=== PATIENT | female | born 1960 | race Caucasian/White ===

== ENCOUNTER 2016-07-26 01:42 | Emergency (ER) ==
[2016-07-26] MEDS ORDERED: NS 1,000 ML IV ONE (01:58)
--- NOTE | 2016-07-26 02:02 | PROVIDER DOCUMENTATION ---
HPI-Syncope/Dizziness - General Source: patient - Dizziness Severity in ED: reports: mild Dizziness Related Current/Associated Symptoms: reports: dizzy, off balance Any recent trauma/injury?: reports: none Modifying Factors: improves with: nothing Patient usually:: reports: walks without assistance <Veronique Cobos - Last Filed: 07/26/16 01:58> <Sid Estes [place]aphne[place] - Last Filed: 07/26/16 03:34> - General Chief Complaint: Dizziness Stated Complaint: SYNCOPE Time Seen by Provider: 07/26/16 01:44 Allergies/Adverse Reactions: Patient Allergies Allergy/AdvReac Type Severity Reaction Status Date / Time No Known Allergies Allergy Verified 07/26/16 02:14 Home Medications: Citalopram Hydrobromide [Citalopram HBr] 40 mg PO QHS 03/22/13 Levothyroxine [Synthroid] 75 microgm PO 1800 03/22/13 Carbamazepine [Tegretol] 200 mg PO Q4H 05/10/13 Gabapentin 800 mg PO TID 08/04/15 LISINOpril [Prinivil] 1 tab PO DAILY 08/04/15 Simvastatin 1 tab PO QHS 08/04/15 Cyanocobalamin (Vitamin B-12) [B-12] 1,000 mcg PO DAILY 07/26/16 Omeprazole [Prilosec] 20 mg PO QAM 07/26/16 - History of Present Illness-Syncope/Dizzy Nature of Presenting Problem: 56 year old F presents to the ED with a cc of weakness, dizziness, and falling x4 with an onset of this morning. PT denies syncopal episodes. (Veronique Cobos) Review of Systems - Adult - REVIEW OF SYSTEMS - ADULT Constitutional: denies: chills, fever Eyes: reports: no symptoms reported Ears, Nose, Mouth & Throat: reports: no symptoms reported Cardiovascular: denies: chest pain, palpitations Respiratory: denies: cough, shortness of breath Gastrointestinal: denies: abdominal pain, nausea, vomiting Genitourinary: denies: dysuria, incontinence Musculoskeletal: denies: bone pain, muscle aches, muscle weakness Integumentary: reports: no symptoms reported Neurological: reports: dizziness/vertigo. denies: headache/migraines, slurred speech, syncope Psychiatric: reports: no symptoms reported Endocrine: reports: no symptoms reported Hematologic/Lymphatic: reports: no symptoms reported Allergic/Immunologic: reports: no symptoms reported All Other Systems: Reviewed and Negative <PapitoVeronique - Last Filed: 07/26/16 01:58> Past History - Adult - PAST MEDICAL HISTORY-ADULT Review of Records: reports: Nursing Assessment Review, Medications Reviewed Major Childhood Illnesses: reports: denies history Cardiovascular: reports: HTN, hyperlipidemia Neurological: reports: Seizures/Epilepsy Psychiatric: reports: depression Endocrine/Immune: reports: thyroid disorder - PRIOR SURGERIES/PROCEDURES Surgical/Procedure History: reports: cholecystectomy, hysterectomy, other (ORIF left hip) - IMMUNIZATION STATUS Childhood Immunizations: See Nurse Assessment Flu Vaccine: See Nurse Assessment - SOCIAL HISTORY Smoking: non-smoker Substance Use: none/never Alcohol Use Frequency: never <Veronique Cobos - Last Filed: 07/26/16 01:58> Physical Exam-General - PHYSICAL EXAM-ADULT Initial Vital Signs Reviewed: Yes - CONSTITUTIONAL General Appearance: appears well, alert, no apparent distress - RESPIRATORY Respiratory: chest non-tender, lungs clear, normal breath sounds - CARDIOVASCULAR Cardiovascular: normal peripheral pulses, regular rate, rhythm, no edema - GASTROINTESTINAL (ABDOMEN) Abdominal Exam: normal bowel sounds, non tender, soft - MUSCULOSKELETAL Back Exam: no CVA tenderness Extremity: normal inspection, no pedal edema - SKIN Integumentary: normal color, normal turgor, warm/dry - PSYCHIATRIC Psych/Mental Status: normal mood/affect, normal thought content, normal thought process, oriented x 3 <PapitoVeronique - Last Filed: 07/26/16 01:58> Progress - EKG 1 Time of EKG reading by physician:: 01:49 EKG Read and Signed by:: Sid Estes EKG Interpretation (*Must complete 3 of following elements*): Abnormal Rate: 69 Rhythm: NSR QRS: LVH <Veronique Cobos - Last Filed: 07/26/16 01:58> - REASSESSMENT Reassessment #1 Time Reassessed: 03:33 (pt felt better, orthostatic VS now normal) Status: improving <Sid Estes - Last Filed: 07/26/16 03:34> - PLAN OF CARE/RESULTS Progress/Plan/Lab Results: Laboratory Tests 07/26/16 07/26/1617 01:57 01:57 01:57 WBC RBC Hgb Hct MCV MCH MCHC RDW Std Deviation Plt Count MPV Immature Gran % (Auto) Neut % (Auto) Lymph % (Auto) [place] % (Auto) Eos % (Auto) Baso % (Auto) Immature Gran # (Auto) Neut # (Auto) Lymph # (Auto) [place] # (Auto) Eos # (Auto) Baso # (Auto) Sodium 133 L Potassium 4.3 Chloride 98 Carbon Dioxide 23 L Anion Gap 12 BUN 18 Creatinine 1.1 H Estimated GFR/1.73 m2 51 BUN/Creatinine Ratio 16 Glucose 102 POC Glucose Calculated Osmolality 268 Calcium 7.7 L Magnesium 2.3 Total Bilirubin 0.17 L AST 14 ALT 9 L Alkaline Phosphatase 114 H Troponin T < 0.010 Total Protein 5.9 L Albumin 3.7 Globulin 2.2 Albumin/Globulin Ratio 1.7 TSH 5.70 H 07/26/16 07/26/16 01:57 01:58 WBC 4.97 RBC 3.71 L Hgb 9.7 L Hct 30.9 L MCV 83.3 MCH 26.1 L MCHC 31.4 L RDW Std Deviation 14.9 H Plt Count 324 MPV 9.7 Immature Gran % (Auto) 0.0 Neut % (Auto) 55.9 Lymph % (Auto) 25.2 [place] % (Auto) 11.3 H Eos % (Auto) 7.4 Baso % (Auto) 0.2 Immature Gran # (Auto) 0.00 Neut # (Auto) 2.78 Lymph # (Auto) 1.25 [place] # (Auto) 0.56 Eos # (Auto) 0.37 Baso # (Auto) 0.01 Sodium Potassium Chloride Carbon Dioxide Anion Gap BUN Creatinine Estimated GFR/1.73 m2 BUN/Creatinine Ratio Glucose POC Glucose 113 H Calculated Osmolality Calcium Magnesium Total Bilirubin AST ALT Alkaline Phosphatase Troponin T Total Protein Albumin Globulin Albumin/Globulin Ratio TSH Orders Category Date Time Status Orthostatic Vital Signs NOW Care 07/26/16 03:03 Active CBC WITH ELECTRONIC DIFF [HEME] Stat Lab 07/26/16 01:57 Completed CMP [COMPREHENSIVE METABOLIC PANEL] [CHEM] Stat Lab 07/26/16 01:57 Completed MAGNESIUM [CHEM] Stat Lab 07/26/16 01:57 Completed TROPONIN T Stat Lab 07/26/16 01:57 Completed TSH Stat Lab 07/26/16 01:57 Completed Tegretol [CARBAMAZEPINE] [HH] Stat Lab 07/26/16 01:57 Received 0.9% Sodium Chloride Inj [Ns] 1,000 ml Med 07/26/16 01:58 Discontinued IV 999 mls/hr EKG [EKG] Stat Ther 07/26/16 01:43 Ordered Vital Signs Temp Pulse Pulse Pulse Pulse Resp BP 07/26/16 03:26 76 72 67 07/26/16 01:55 97.1 F L 63 15 101/61 BP BP BP Pulse Ox 07/26/16 03:26 128/76 129/71 98/52 07/26/16 01:55 100 No Known Allergies Allergy (Verified 07/26/16 02:14) Citalopram Hydrobromide [Citalopram HBr] 40 mg PO QHS 03/22/13 Levothyroxine [Synthroid] 75 microgm PO 1800 03/22/13 Carbamazepine [Tegretol] 200 mg PO Q4H 05/10/13 Gabapentin 800 mg PO TID 08/04/15 LISINOpril [Prinivil] 1 tab PO DAILY 08/04/15 Simvastatin 1 tab PO QHS 08/04/15 Cyanocobalamin (Vitamin B-12) [B-12] 1,000 mcg PO DAILY 07/26/16 Omeprazole [Prilosec] 20 mg PO QAM 07/26/16 I&O 07/24/16 07/25/16 07/26/16 06:59 06:59 06:59 Intake Total 250 Balance 250 Laboratory 07/26/16 07/26/16 07/26/16 01:58 01:57 01:57 WBC 4.97 RBC 3.71 L Hgb 9.7 L Hct 30.9 L MCV 83.3 MCH 26.1 L MCHC 31.4 L RDW Std Deviation 14.9 H Plt Count 324 MPV 9.7 Immature Gran % (Auto) 0.0 Neut % (Auto) 55.9 Lymph % (Auto) 25.2 [place] % (Auto) 11.3 H Eos % (Auto) 7.4 Baso % (Auto) 0.2 Immature Gran # (Auto) 0.00 Neut # (Auto) 2.78 Lymph # (Auto) 1.25 [place] # (Auto) 0.56 Eos # (Auto) 0.37 Baso # (Auto) 0.01 Sodium Potassium Chloride Carbon Dioxide Anion Gap BUN Creatinine Estimated GFR/1.73 m2 BUN/Creatinine Ratio Glucose POC Glucose 113 H Calculated Osmolality Calcium Magnesium Total Bilirubin AST ALT Alkaline Phosphatase Troponin T < 0.010 Total Protein Albumin Globulin Albumin/Globulin Ratio TSH 07/26/16 07/26/16 01:57 01:57 WBC RBC Hgb Hct MCV MCH MCHC RDW Std Deviation Plt Count MPV Immature Gran % (Auto) Neut % (Auto) Lymph % (Auto) [place] % (Auto) Eos % (Auto) Baso % (Auto) Immature Gran # (Auto) Neut # (Auto) Lymph # (Auto) [place] # (Auto) Eos # (Auto) Baso # (Auto) Sodium 133 L Potassium 4.3 Chloride 98 Carbon Dioxide 23 L Anion Gap 12 BUN 18 Creatinine 1.1 H Estimated GFR/1.73 m2 51 BUN/Creatinine Ratio 16 Glucose 102 POC Glucose Calculated Osmolality 268 Calcium 7.7 L Magnesium 2.3 Total Bilirubin 0.17 L AST 14 ALT 9 L Alkaline Phosphatase 114 H Troponin T Total Protein 5.9 L Albumin 3.7 Globulin 2.2 Albumin/Globulin Ratio 1.7 TSH 5.70 H (Sid Estes) Departure <Veronique Cobos - Last Filed: 07/26/16 01:58> - Departure Time of Disposition Order: 03:33 Certified Medical Emergency: Emergent <Sid Estes - Last Filed: 07/26/16 03:34> - Departure DIAGNOSIS: Hypotension Qualifiers: Hypotension type: unspecified hypotension type Qualified Code(s): I95.9 - Hypotension, unspecified Disposition: HOME 01 Condition: Good Attestation - Scribe Verification/Attestation Scribe:: Veronique Cobos Acting as Scribe for:: Sid Estes Scribe documention review:: This chart was documented by a scribe and accurately reflects the service the provider performed and the decisions made by the provider. <Veronique Cobos - Last Filed: 07/26/16 01:58> Physician Attestation - Physician Attestation I, the provider, attest to the following statement:: Sid Estes Physician documentation Attestation:: This documentation recorded by the scribe accurately reflects the service I personally performed and the decisions made by me. <Veronique Cobos - Last Filed: 07/26/16 01:58>
[2016-07-26 02:10] LABS: MANUAL DIFF NEEDED? NO
[2016-07-26 02:11] LABS: BASO% 0.2 % (0.0-0.8); EOS# 0.37 X1000 (0.0-0.7); EOS% 7.4 % (0.0-10.0); HEMATOCRIT 30.9 % (37.0-47.0); HEMOGLOBIN 9.7 g/dL (12.0-16.0); LYMPH# 1.25 X1000 (1.2-3.4); LYMPH% 25.2 % (20.5-51.1); MCH 26.1 PG (27-31); MCHC 31.4 g/dL (33-37); MCV 83.3 FL (81-99); MONO# 0.56 X1000 (0.11-0.59); MONO% 11.3 % (1.7-9.3); MPV 9.7 FL (7.4-10.4); NEUT% 55.9 % (42.2-75.2); PLT 324 X1000 (130-400); RBC 3.71 XMIL (4.2-5.4)
[2016-07-26 02:38] LABS: ALBUMIN 3.7 g/dL (3.5-5.0); CALCIUM 7.7 mg/dL (8.8-10.2); MAGNESIUM 2.3 mg/dL (1.5-2.7); POTASSIUM 4.3 mmol/L (3.5-5.1); TOTAL BILIRUBIN 0.17 mg/dL (0.20-1.00); TOTAL PROTEIN 5.9 g/dL (6.3-8.3)
[2016-07-26 03:38] VITALS: BP 112/74
--- NOTE | 2016-07-26 05:50 | EKG Report ---
Test Performed on : 07/26/2016 01:49:31 AM Test Reason : SYNCOPE Blood Pressure : / mmHG Vent. Rate : 069 BPM Atrial Rate : 069 BPM P-R Int : 154 ms QRS Dur : 096 ms QT Int : 438 ms P-R-T Axes : 024 -10 024 degrees QTc Int : 469 ms Normal sinus rhythm. Minimal voltage criteria for LVH, may be normal variant Borderline ECG When compared with ECG of 06-JUN-2013 13:43, ST no longer depressed in Anterior leads Nonspecific T wave abnormality, improved in Inferior leads T wave inversion no longer evident in Anterior leads QT has shortened Unconfirmed Result
== END 2016-07-26 03:54 | disposition home or self-care (01) ==
LOC: EDBD → ED 01:42
DX: I95.9 Hypotension, unspecified (principal); R42 Dizziness and giddiness; R53.1 Weakness; R29.6 Repeated falls; I10 Essential (primary) hypertension; E07.9 Disorder of thyroid, unspecified; R56.9 Unspecified convulsions; R94.31 Abnormal electrocardiogram [ECG] [EKG]; Z79.899 Other long term (current) drug therapy; E78.5 Hyperlipidemia, unspecified; F32.9 Major depressive disorder, single episode, unspecified
CPT/HCPCS: 36415; 80053; 80156; 82948; 83735; 84443; 84484; 85025; 93005; 99283; J7030